=== PATIENT | male | born 1965 | race American Indian/Alaskan Native ===

== ENCOUNTER 2019-10-18 20:29 | Emergency (ER) | payer MEDICARE ==
[2019-10-18 22:00] LABS: Basophils # (Auto) 0.1 K/mm3 (0.0-0.1); Basophils % (Auto) 0.8 % (0.0-1.8); Eosinophils # (Auto) 0.2 K/mm3 (0.0-0.4); Eosinophils % (Auto) 2.4 % (0.0-4.3); Lymphocytes # (Auto) 3.9 K/mm3 (1.2-5.4); Lymphocytes % (Auto) 41.4 % (13.4-35.0); Mean Corpuscular HGB Conc 33 % (32-34); Mean Corpuscular Volume 92 fl (84-94); Monocytes # (Auto) 0.5 K/mm3 (0.0-0.8); Monocytes % (Auto) 5.7 % (0.0-7.3); Platelet Count 263 K/mm3 (140-440); Red Blood Count 4.98 M/mm3 (3.65-5.03); Red Cell Distribution Width 13.8 % (13.2-15.2)
--- NOTE | 2019-10-18 22:00 | XRay Report ---
CHEST 2 VIEWS INDICATION: SOB. COMPARISON: FINDINGS: Support devices: None. Heart: Within normal limits. Lungs: No acute air space or interstitial disease. Pleura: No significant pleural effusion. No pneumothorax. Additional findings: None. IMPRESSION: 1. No acute findings. Signer Name: Adithya Salomon MD Signed: 10/18/2019 9:55 PM Workstation Name: [id number]
[2019-10-18 22:09] LABS: INR 0.98 (0.87-1.13)
[2019-10-18 22:10] LABS: Partial Thromboplastin Time 26.7 Sec. (24.2-36.6)
[2019-10-18 22:15] LABS: Alanine Aminotransferase 82 units/L (7-56); Albumin 4.4 g/dL (3.9-5); BUN/Creatinine Ratio 8; Blood Urea Nitrogen 10 mg/dL (9-20); Calcium 10.6 mg/dL (8.4-10.2); Hemolysis Index 23
--- NOTE | 2019-10-18 23:03 | Emergency Department Report ---
ED General Adult HPI - General Chief complaint: Weakness Stated complaint: LOW O2 Time Seen by Provider: 10/18/19 22:50 Source: patient Mode of arrival: Ambulatory Limitations: No Limitations - History of Present Illness Initial comments: 54-year-old male with a past medical history of sleep apnea, obesity, and schizophrenia on once a month injections of ability presents to the hospital complaining of hypoxia. Patient had a checkup visit with his primary care doctor today and was found to be hypoxic on room air. Patient states he was feeling a little tired since yesterday but otherwise denies chest pain, shortness of breath, cough, loss of sense of taste, loss of sense of smell, flu/URI symptoms, calf tenderness, leg edema, history of PE/DVT, recent travel history, orthopnea, PND, or current smoking. Patient has smoked here and there in the past but denies ever being a regular smoker. He has not been tested for COVID but has not been sick. Patient does not take any other medications besides Abilify. Triage room air saturation 88-90%. PMD: Dr. Katiana Benedict - Related Data Allergies Allergy/AdvReac Type Severity Reaction Status Date / Time No Known Allergies Allergy Unverified 10/18/19 20:54 ED Review of Systems ROS: Stated complaint: LOW O2 Other details as noted in HPI Comment: All other systems reviewed and negative ED Past Medical Hx - Past Medical History Previous Medical History?: No - Surgical History Past Surgical History?: Yes Hx Cholecystectomy: Yes - Social History Smoking Status: Never Smoker ED Physical Exam - General Limitations: No Limitations - Other Other exam information: General: No acute distress Head: Atraumatic Eyes: normal appearance ENT: Moist mucous membranes Neck: Normal appearance, no midline tenderness Chest: Clear to auscultation bilaterally, no tachypnea CV: Regular rate and rhythm Abdomen: Soft, normal bowel sounds, nontender, nondistended, no rebound or guarding Back: Normal inspection Extremity: Normal inspection, full range of motion, no calf tenderness or leg edema Neuro: Alert O x 3, no facial asymmetry, speech clear, no gross motor sensory deficit Psych: Appropriate behavior Skin: No rash ED Course Vital Signs 10/18/19 10/18/19 10/18/19 20:56 23:10 23:20 Temperature 98.1 F Pulse Rate 86 Respiratory 18 Rate Blood Pressure 136/87 Blood Pressure [Left] O2 Sat by Pulse 90 95 92 Oximetry 10/18/19 10/18/19 10/18/19 23:23 23:30 23:45 Temperature Pulse Rate 74 70 71 Respiratory 21 20 24 Rate Blood Pressure 142/89 148/94 Blood Pressure 142/89 [Left] O2 Sat by Pulse 92 98 98 Oximetry 10/18/19 10/19/19 10/19/19 23:57 00:00 00:15 Temperature Pulse Rate 71 74 Respiratory 23 13 13 Rate Blood Pressure 140/89 144/86 Blood Pressure [Left] O2 Sat by Pulse 98 98 100 Oximetry 10/19/19 10/19/19 10/19/19 00:31 00:45 01:01 Temperature Pulse Rate 70 79 74 Respiratory 22 19 14 Rate Blood Pressure 127/89 127/89 132/86 Blood Pressure [Left] O2 Sat by Pulse 98 98 96 Oximetry 10/19/19 01:15 Temperature Pulse Rate 73 Respiratory 22 Rate Blood Pressure 118/88 Blood Pressure [Left] O2 Sat by Pulse 98 Oximetry - Consultations Consultation #1: 10/19/19 02:14 I attempted to speak to on-call ladle operator was told he however, after greater than 1 hour and 3 call attempt there was no callback. Discussed case with ICU/ladle operator Dr. Leroy. Patient does not meet home O2 criteria. Close outpatient follow-up advised. Referral to will be provided ED Medical Decision Making - Lab Data Result diagrams: 10/18/19 21:34 10/18/19 21:34 Lab Results 10/18/19 10/18/19 10/18/19 Range/Units 21:34 21:34 21:34 WBC 9.4 (4.5-11.0) K/mm3 RBC 4.98 (3.65-5.03) M/mm3 Hgb 15.0 (11.8-15.2) gm/dl Hct 46.0 H (35.5-45.6) % MCV 92 (84-94) fl MCH 30 (28-32) pg MCHC 33 (32-34) % RDW 13.8 (13.2-15.2) % Plt Count 263 (140-440) K/mm3 Lymph % (Auto) 41.4 H (13.4-35.0) % Mckenzie % (Auto) 5.7 (0.0-7.3) % Eos % (Auto) 2.4 (0.0-4.3) % Baso % (Auto) 0.8 (0.0-1.8) % Lymph # 3.9 (1.2-5.4) K/mm3 Mckenzie # 0.5 (0.0-0.8) K/mm3 Eos # 0.2 (0.0-0.4) K/mm3 Baso # 0.1 (0.0-0.1) K/mm3 Seg Neutrophils % 49.7 (40.0-70.0) % Seg Neutrophils # 4.7 (1.8-7.7) K/mm3 PT 13.1 (12.2-14.9) Sec. INR 0.98 (0.87-1.13) APTT 26.7 (24.2-36.6) Sec. D-Dimer 144.17 (0-234) ng/mlDDU ABG pH (7.350-7.450) pH Units ABG pCO2 mm Hg ABG pO2 (80.0-90.0) mm Hg ABG HCO3 (20.0-26.0) mmol/L ABG O2 Saturation (95.0-99.0) % ABG O2 Content (0.0-44) ABG Base Excess (-2.0-3.0) mmol/L ABG Hemoglobin (14.0-18.0) gm/dl ABG Carboxyhemoglobin (0.0-5.0) % ABG Methemoglobin (0.0-1.5) % Oxyhemoglobin (95.0-99.0) % FiO2 % Sodium 143 (137-145) mmol/L Potassium 4.2 (3.6-5.0) mmol/L Chloride 102.8 (98-107) mmol/L Carbon Dioxide 30 (22-30) mmol/L Anion Gap 14 mmol/L BUN 10 (9-20) mg/dL Creatinine 1.3 (0.8-1.3) mg/dL Estimated GFR > 60 ml/min BUN/Creatinine Ratio 8 % Glucose 175 H (75-100) mg/dL Calcium 10.6 H (8.4-10.2) mg/dL Total Bilirubin 0.30 (0.1-1.2) mg/dL AST 93 H (5-40) units/L ALT 82 H (7-56) units/L Alkaline Phosphatase 59 (35-129) units/L Troponin T < 0.010 (0.00-0.029) ng/mL NT-Pro-B Natriuret Pep < 5 (0-900) pg/mL Total Protein 7.5 (6.3-8.2) g/dL Albumin 4.4 (3.9-5) g/dL Albumin/Globulin Ratio 1.4 % 10/18/19 Range/Units 23:10 WBC (4.5-11.0) K/mm3 RBC (3.65-5.03) M/mm3 Hgb (11.8-15.2) gm/dl Hct (35.5-45.6) % MCV (84-94) fl MCH (28-32) pg MCHC (32-34) % RDW (13.2-15.2) % Plt Count (140-440) K/mm3 Lymph % (Auto) (13.4-35.0) % Mckenzie % (Auto) (0.0-7.3) % Eos % (Auto) (0.0-4.3) % Baso % (Auto) (0.0-1.8) % Lymph # (1.2-5.4) K/mm3 Mckenzie # (0.0-0.8) K/mm3 Eos # (0.0-0.4) K/mm3 Baso # (0.0-0.1) K/mm3 Seg Neutrophils % (40.0-70.0) % Seg Neutrophils # (1.8-7.7) K/mm3 PT (12.2-14.9) Sec. INR (0.87-1.13) APTT (24.2-36.6) Sec. D-Dimer (0-234) ng/mlDDU ABG pH 7.344 L (7.350-7.450) pH Units ABG pCO2 54.8 mm Hg ABG pO2 67.6 L (80.0-90.0) mm Hg ABG HCO3 29.2 H (20.0-26.0) mmol/L ABG O2 Saturation 93.5 L (95.0-99.0) % ABG O2 Content 19.8 (0.0-44) ABG Base Excess 2.1 (-2.0-3.0) mmol/L ABG Hemoglobin 15.5 (14.0-18.0) gm/dl ABG Carboxyhemoglobin 1.7 (0.0-5.0) % ABG Methemoglobin 0.6 (0.0-1.5) % Oxyhemoglobin 91.3 L (95.0-99.0) % FiO2 21 % Sodium (137-145) mmol/L Potassium (3.6-5.0) mmol/L Chloride (98-107) mmol/L Carbon Dioxide (22-30) mmol/L Anion Gap mmol/L BUN (9-20) mg/dL Creatinine (0.8-1.3) mg/dL Estimated GFR ml/min BUN/Creatinine Ratio % Glucose (75-100) mg/dL Calcium (8.4-10.2) mg/dL Total Bilirubin (0.1-1.2) mg/dL AST (5-40) units/L ALT (7-56) units/L Alkaline Phosphatase (35-129) units/L Troponin T (0.00-0.029) ng/mL NT-Pro-B Natriuret Pep (0-900) pg/mL Total Protein (6.3-8.2) g/dL Albumin (3.9-5) g/dL Albumin/Globulin Ratio % - Radiology Data Radiology results: report reviewed CHEST 2 VIEWS INDICATION: SOB. COMPARISON: FINDINGS: Support devices: None. Heart: Within normal limits. Lungs: No acute air space or interstitial disease. Pleura: No significant pleural effusion. No pneumothorax. Additional findings: None. IMPRESSION: 1. No acute findings. - Medical Decision Making Patient has a low pretest probability for PE and does not have any DVT symptoms. D-dimer is negative. Patient denies shortness of breath or pleuritic chest pain. Patient is asymptomatic with a normal chest x-ray. Patient states he is compliant with his CPAP and encouraged to continue to do so. Outpatient pulmonology referral provided Critical Care Time: No Critical care attestation.: If time is entered above; I have spent that time in minutes in the direct care of this critically ill patient, excluding procedure time. ED Disposition Clinical Impression: Hypoxia, Obstructive sleep apnea Disposition: DC-01 TO HOME OR SELFCARE Is pt being admited?: No Does the pt Need Aspirin: No Condition: Stable Instructions: Hypoxia (ED) Additional Instructions: You have mildly low oxygen level however, it is not low enough to require home oxygen use at this time. A chest x-ray and evaluation in the ED are unremarkable. It is very important you continue to use your CPAP machine while sleeping. It is also very important you follow-up with a ladle operator as soon as possible. Please call the ladle operator provided today, inform them that you were in the ER with mild low oxygen level and you need very close follow-up. Return if symptoms worsen as indicated by your discharge instructions Referrals: SAMANTHA OCAMPO MD [Staff Physician] - [facility] (call today for follow up in the next 1-2 days. ) PRIMARY CAREMD [Primary Care Provider] - 3-5 Days Time of Disposition: 02:19
[2019-10-18 23:19] LABS: ABG Base Excess 2.1 mmol/L (-2.0-3.0); ABG HCO3 29.2 mmol/L (20.0-26.0); ABG Methemoglobin 0.6 % (0.0-1.5); ABG Oxygen Saturation 93.5 % (95.0-99.0); ABG PCO2 54.8 mm Hg; ABG PH 7.344 pH Units (7.350-7.450); ABG PO2 67.6 mm Hg (80.0-90.0)
[2019-10-19 02:33] VITALS: BP 146/86
== END 2019-10-19 02:52 | disposition home or self-care (01) ==
LOC: ED 20:29
DX: R09.02 Hypoxemia (principal); Z90.49 Acquired absence of other specified parts of digestive tract
CPT/HCPCS: 36415; 71046; 80053; 82803; 83880; 84484; 85025; 85379; 85610; 85730